=== PATIENT | female | born 1970 | race Caucasian/White ===

== ENCOUNTER 2018-01-20 00:59 | Emergency (ER) | payer SELFPAY ==
[~2018-01-20] VITALS: Ht 160 cm; Wt 77.0 kg
[2018-01-20 03:48] VITALS: BP 116/68
== END 2018-01-20 03:50 | disposition home or self-care (01) ==
LOC: ER 00:59
DX: F10.229 Alcohol dependence with intoxication, unspecified (principal); E11.9 Type 2 diabetes mellitus without complications; R03.0 Elevated blood-pressure reading, without diagnosis of hypertension; Y90.9 Presence of alcohol in blood, level not specified; Z96.659 Presence of unspecified artificial knee joint
CPT/HCPCS: 99283